=== PATIENT | female | born 1975 | race Caucasian/White ===

== ENCOUNTER 2019-05-25 18:19 | Emergency (ER) | payer OTHER, SELFPAY ==
[2019-05-25 18:19] VITALS: BP 154/113; PULSE 90; RESP 18; TEMP 36.6; O2SAT 99; BMI 29.7
--- NOTE | 2019-05-25 18:37 | RAD_ITS ---
STUDY: X-RAY CHEST REASON FOR EXAM: Female, 44 years old. Dizziness TECHNIQUE: PA and lateral views of the chest COMPARISON: None. FINDINGS: The lungs are clear. There are no pleural effusions. There is no pneumothorax. The heart is normal in size. The visualized osseous structures are within normal limits. RAD/Chest PA and Lateral IMPRESSION: No acute thoracic pathology. Electronically Signed: Brandon Bell, at 18:53 EDT Tel , Service support ,
--- NOTE | 2019-05-25 18:37 | EKG12_ITS ---
Test Reason : Blood Pressure : / mmHG Vent. Rate : 089 BPM Atrial Rate : 089 BPM P-R Int : 124 ms QRS Dur : 080 ms QT Int : 380 ms P-R-T Axes : 052 059 024 degrees QTc Int : 462 ms Normal sinus rhythm with sinus arrhythmia Nonspecific ST abnormality Abnormal ECG Confirmed by MENDEL BEGUM, ZAID ([id number]), assignment desk editor ARTHUR BASS ([id number]) on 05/27/2019 10:52:14 AM Referred By: Confirmed By:ZAID OGLESBY MD
--- NOTE | 2019-05-25 18:40 | ED.RN ---
NO OLD EKGS IN MUSE
[2019-05-25 19:17] LABS: Absolute Lymphocyte Count 2.61 X10^3/uL (0.83-4.51); Basophil# 0.04 X10^3/uL; Basophil% 0.5 % (0-1); Eosinophil# 0.11 X10^3/uL; Eosinophils% 1.3 % (0-5); Hematocrit 43.4 % (37-47); Hemoglobin 14.7 g/dL (12.0-15.0); Lymphocyte # 2.61 X10^3/ul (4.0); Lymphocyte % 30.9 % (19-41); Mean Corp Hgb Conc 33.9 g/dL (32-36); Mean Corpuscular Hgb 29.3 pg (27.0-32.0); Mean Corpuscular Volume 86.5 fL (81-99); Mean Platelet Vol. 10.5 fl (6.2-12.0); Monocyte# 0.63 X10^3/uL; Monocyte% 7.5 % (0-10); NRBC Flagged by Analyzer 0 % (0-5); Neutrophil # 5.04 X10^3/uL (2.7-7.7); Neutrophil % 59.7 % (47-70); Platelet Count 289 K/mm3 (150-450); RBC Distribution Width CV 12.8 % (11.6-14.6); RBC Distribution Width SD 40.6 fl (35.1-43.9); Red Blood Count 5.02 M/mm3 (4.2-5.4); White Blood Count 8.4 K/mm3 (4.4-11.0)
[2019-05-25 19:21] LABS: International Normalized Ratio 1.1; Partial Thromboplast Time 27.1 Seconds (24.1-36.2); Prothrombin Time (Protime)PT. 13.8 SECONDS (11.7-14.9)
[2019-05-25 19:31] LABS: Anion Gap 6 (5-15); BUN 9 mg/dL (7-18); Calcium,Total 9.1 mg/dL (8.5-10.1); Chloride 103 mmol/L (98-107); Creatinine, Serum 0.82 mg/dL (0.55-1.02); EST Glomerular Filtration Rate 80 mL/min (>60); Est Glom Filt Rate - Afr Amer 97 mL/min (>60); Estimated Creatinine Clearance 83.36 ml/min; Glucose 136 mg/dL (74-106); Potassium 3.5 mmol/L (3.5-5.1); Sodium Level 137 mmol/L (136-145)
[2019-05-25 19:46] VITALS: BP 169/96; PULSE 92; RESP 18; O2SAT 100
[2019-05-25 19:48] VITALS: O2SAT 99
[2019-05-25 20:01] LABS: Bedside Glucose 127 mg/dL (70-110)
[2019-05-25] MEDS: 0.9% Normal Saline 1,000 ML 50 ML IV (20:01)
[2019-05-25 21:21] VITALS: BP 160/90; PULSE 104; RESP 17; O2SAT 99
[2019-05-25 21:26] VITALS: BP 165/84; BP 172/90; BP 177/99; PULSE 86; PULSE 90; PULSE 95
[2019-05-25] MEDS: Meclizine HCl 25 MG Tablet PO (21:26)
--- NOTE | 2019-05-25 22:14 | ED.VISSUMM ---
- ER Visit Summary Date of Service: 05/25/19 Chief Complaint: Dizziness History of Present Illness: The patient is a 44 F who presents with dizziness that began today. Patient states it felt like my legs were jelly. Patient states she also felt spaced out. Patient states the dizziness waxes and wanes. Patient states nothing makes it better or worse. Patient denies any visual changes. Patient denies any headaches. Patient denies any nausea or vomiting. Patient denies any hearing changes or tinnitus. Physical Examination: Vital signs are stable. Patient is afebrile. Patient is in no acute distress. Pupils are equal, round, and reactive to light bilaterally. Extraocular muscles are intact. There is no nystagmus noted. However the patient states the dizziness to get worse with movement of her eyes. Oral mucosa is pink and moist. Neck is supple. Trachea is midline. There is no JVD noted. Heart was regular rate and rhythm. Lungs are clear and equal bilaterally. Abdomen is soft. Bowel sounds are normal. There is no tenderness. There is no guarding noted. Skin is warm dry. Cranial nerves II through XII are intact. There are no focal motor or sensory deficits noted. Test Results: EKG showed normal sinus rhythm with a rate of 89. There are no acute ST or T wave changes. CBC and basic metabolic profile were within normal limits. INR was normal. Emergency Department Course and Treatment: Orthostatic vital signs were obtained and were negative. Patient was given a dose of meclizine here. Patient had some relief with this. Patient is to go home. Patient was instructed to drink plenty of fluids. Patient was instructed to follow-up with her primary care physician in 5 to 7 days. Patient understood and was agreeable with the plan. All questions were answered. Disposition: Discharge home Impression: Dizziness This note was generated with [employer] dictation software. It may contain incorrect words, spelling, and punctuation that were not noted in review of the chart prior to signing ED Disposition - Plan for ED Patient: Disposition: Home or Assisted Living Diagnosis: Dizziness of unknown etiology Instructions: DIZZINESS, Unk Cause Referrals: Cara Daigle MD [Primary Care Provider] - 3-5 Days
[2019-05-25 22:18] VITALS: BP 159/82; PULSE 88; RESP 17; O2SAT 99
== END 2019-05-25 22:32 | disposition home or self-care (01) ==
PROVIDERS: Emergency Provider Emergency Medicine; Family Provider Internal Medicine; PCP Internal Medicine
DX: R42 Dizziness and giddiness (principal); K21.9 Gastro-esophageal reflux disease without esophagitis; E11.9 Type 2 diabetes mellitus without complications; Z79.899 Other long term (current) drug therapy
CPT/HCPCS: 71046; 80048; 82962; 85025; 85610; 85730; 93005; 99285; J7030